=== PATIENT | female | born 1955 | race Caucasian/White ===

== ENCOUNTER 2022-06-25 09:51 | Inpatient (IN) | payer OTHER ==
[~2022-06-25] VITALS: Ht 167.6 cm; Wt 83.9 kg
[2022-06-25 09:55] VITALS: BP 125/55
--- NOTE | 2022-06-25 10:00 | NUR ---
PT WAS EXAMINED BY ED MD.
[2022-06-25 11:18] LABS: BASOPHILS % (AUTO) 0.2 % (0.0-2.0); EOSINOPHILS % (AUTO) 0.6 % (0.0-4.0); HEMATOCRIT 40.2 % (36-48); HEMOGLOBIN 13.1 g/dL (12.0-16.0); LYMPHOCYTES % (AUTO) 13.3 % (20.5-51.1); MEAN CORPUSCULAR HEMOGLOBIN 28 pg (27-31); MEAN CORPUSCULAR HGB CONC 32 g/dL (33-37); MEAN CORPUSCULAR VOLUME 87.6 fL (80-94); MONOCYTES # (AUTO) 0.4 K/uL (0.8-1.0); MONOCYTES % (AUTO) 5.2 % (1.7-9.3); NEUTROPHILS # (AUTO) 5.8 K/uL (1.8-7.7); NEUTROPHILS % (AUTO) 80.7 % (42.2-75.2); PLATELET COUNT (AUTO) 170 K/uL (140-450); RED CELL DISTRIBUTION WIDTH 15.7 % (11.6-13.7); WHITE BLOOD COUNT (AUTO) 7.2 K/uL (4.8-10.8)
--- NOTE | 2022-06-25 11:36 | NUR ---
PT WAS TAKEN TO XRAY.
[2022-06-25 11:38] LABS: ALBUMIN 3.7 g/dL (3.4-5.0); ANION GAP 16.4 (8-16); CARBON DIOXIDE 20.5 mmol/L (21-32); CREATININE 2.6 mg/dL (0.6-1.3); POTASSIUM 4.9 mmol/L (3.5-5.1); TOTAL BILIRUBIN 0.5 mg/dL (0.0-1.0)
[2022-06-25] MEDS ORDERED: NACL 0.9% 1,000 ML IV ONE ×2 (12:05→16:10)
--- NOTE | 2022-06-25 12:52 | NUR ---
BS CHECKED 139 PER PT REQUESTS.
[2022-06-25] MEDS ORDERED: SYN.05 PO (13:26)
[2022-06-25] MEDS ORDERED: LISI-486 PO (13:26)
[2022-06-25] MEDS ORDERED: GABA300C PO (13:26)
[2022-06-25] MEDS ORDERED: TOMOMETER 1 DEV DEV MC ONE (15:17)
[2022-06-25] MEDS ORDERED: KETOROLAC 15 MG/ML VIAL IM ONE (16:00)
[2022-06-25] MEDS ORDERED: ZOLPIDEM 10 MG TAB PO PRN (16:10)
[2022-06-25] MEDS ORDERED: LORazepam 2 MG/ML VIAL IVP PRN (16:10)
[2022-06-25] MEDS ORDERED: DEXTROSE 50% 50 ML SYR IVP PRN (16:10)
[2022-06-25] MEDS ORDERED: INSULIN LISPRO SLIDING SCALE 100 UNITS/ML VIAL SUBQ PRN (16:10)
[2022-06-25] MEDS ORDERED: MAG SULF 2000 MG/WATER PREMIX 50 ML IV PRN (16:10)
[2022-06-25] MEDS ORDERED: DOCUSATE SODIUM 100 MG GELCAP PO PRN (16:10)
[2022-06-25] MEDS ORDERED: ONDANSETRON 4 MG/2 ML VIAL IVP PRN (16:10)
[2022-06-25] MEDS ORDERED: MORPHINE SULFATE 2 MG/ML SYR IVP PRN (16:10)
[2022-06-25] MEDS ORDERED: POTASSIUM CHLORIDE 10 MEQ TABER PO PRN (16:10)
[2022-06-25] MEDS ORDERED: ACETAMINOPHEN 325 MG TAB PO PRN (16:10)
[2022-06-25] MEDS: BLOOD GLUCOSE MONITORING 1 DEV DEV FS SCH ×2 (16:41→21:32)
--- NOTE | 2022-06-25 16:50 | NUR ---
P.T. NOTES HOLD P.T. EVAL DUE TO HOSPITAL PROCEDURE; FF UP WHEN ABLE.
--- NOTE | 2022-06-25 17:03 | NUR ---
PATIENT HAS BEEN SCREENED AND CATEGORIZED MODERATE NUTRITION RISK. PATIENT WILL BE SEEN WITHIN 3-5 DAYS OF ADMISSION. REVIEWED BY AYANA HOOD RD
--- NOTE | 2022-06-25 19:30 | NUR ---
Patient received on bed lying comfortably and awake. Alert and oriented x4. No acute distresss. Respirations even and unlabored.
[2022-06-25] MEDS: GABAPENTIN 300 MG CAP PO SCH (21:34)
[2022-06-26] MEDS ORDERED: LEVOTHYROXINE 0.05 MG TAB PO SCH (06:30)
--- NOTE | 2022-06-26 07:33 | NUR ---
pt sleeping, no ac distress, st on cm, hr 102, w unifocal PVCs, o2 sat95% at 2 l/min via nc, sr up times 2.
[2022-06-26 07:43] LABS: BASOPHILS % (AUTO) 0.4 % (0.0-2.0); EOSINOPHILS # (AUTO) 0.1 K/uL (0-0.4); EOSINOPHILS % (AUTO) 1.1 % (0.0-4.0); HEMATOCRIT 39.3 % (36-48); HEMOGLOBIN 12.4 g/dL (12.0-16.0); LYMPHOCYTES # (AUTO) 1.4 K/uL (2.5-16.5); LYMPHOCYTES % (AUTO) 27.9 % (20.5-51.1); MEAN CORPUSCULAR HEMOGLOBIN 29 pg (27-31); MEAN CORPUSCULAR HGB CONC 31 g/dL (33-37); MEAN CORPUSCULAR VOLUME 90.5 fL (80-94); MONOCYTES # (AUTO) 0.4 K/uL (0.8-1.0); MONOCYTES % (AUTO) 8.5 % (1.7-9.3); NEUTROPHILS # (AUTO) 3.1 K/uL (1.8-7.7); NEUTROPHILS % (AUTO) 62.1 % (42.2-75.2); PLATELET COUNT (AUTO) 156 K/uL (140-450); RED BLOOD CELL COUNT(AUTO) 4.35 MIL/uL (4.20-5.40); RED CELL DISTRIBUTION WIDTH 16.2 % (11.6-13.7)
[2022-06-26 09:34] LABS: ANION GAP 14.8 (8-16); CARBON DIOXIDE 17.7 mmol/L (21-32); CREATININE 2.5 mg/dL (0.6-1.3); POTASSIUM 4.5 mmol/L (3.5-5.1)
[2022-06-26] MEDS: BLOOD GLUCOSE MONITORING 1 DEV DEV FS SCH (09:41)
--- NOTE | 2022-06-26 09:41 | NUR ---
PER Tunde PRESLEY/C NPO.
[2022-06-26] MEDS: GABAPENTIN 300 MG CAP PO SCH (10:10)
--- NOTE | 2022-06-26 11:54 | NUR ---
sleeping, no ac distress, sr w pvcs on cm, o2 sat 98% 2 l/m via nc, sr up times 2
--- NOTE | 2022-06-26 13:39 | NUR ---
pt ate lunch, no ac distress, facial pain 3/10, hematoma left eye, perrl, moving all ext, sr w pvcs on cm, sr up times 2. Wants to sign AMA, Dr Balderas made aware
--- NOTE | 2022-06-26 13:41 | NUR ---
signed AMA form
[2022-06-26 15:05] VITALS: BP 117/78
--- NOTE | 2022-06-26 15:05 | NUR ---
pt to car, ambulated w steady gait, a/o times 4, nad, no facial pain, no diziness, signed against medical advice, taken home by family will f up w pmd in 1-2 days, denies any further questions
== END 2022-06-26 14:00 | disposition left against medical advice (07) | DRG 565 ==
LOC: MED 09:51 → MMU 16:14
PROVIDERS: ADMIT Family Medicine; ATTEND Family Medicine
PROC: 0HQ1XZZ Repair Face Skin, External Approach (ICD-10-PCS; principal; 2022-06-25)
DX: S02.92XA Unspecified fracture of facial bones, initial encounter for closed fracture (principal); N18.4 Chronic kidney disease, stage 4 (severe); X58.XXXA Exposure to other specified factors, initial encounter; S01.112A Laceration without foreign body of left eyelid and periocular area, initial encounter; K76.9 Liver disease, unspecified; Z20.822 Contact with and (suspected) exposure to COVID-19; Z88.1 Allergy status to other antibiotic agents; Z79.899 Other long term (current) drug therapy; Y93.89 Activity, other specified; Y92.89 Other specified places as the place of occurrence of the external cause; Y99.8 Other external cause status; E11.22 Type 2 diabetes mellitus with diabetic chronic kidney disease
CPT/HCPCS: 36415; 70450; 70486; 71045; 72125; 76770; 80048; 80053; 83735; 83880; 84484; 85025; 85379; 90471; 90715; 93005; 93970; 96361; 96374; 97110; 97116; 97530; 99285; J1815; J1885; Q0092